=== PATIENT | male | born 1955 | race Caucasian/White ===

== ENCOUNTER 2024-11-24 08:02 | Outpatient (CLI) | payer OTHER ==
[~2024-11-24 08:02] MED LIST: ALEVE220 M1 PO; CEFADROXIL500 MG PO; PERCOCET 5/3251 TAB PO
== END 2024-11-24 08:14 | disposition home or self-care (01) ==
LOC: NUCLEAR 08:02
PROVIDERS: ATTEND Internal Medicine
DX: I10 Essential (primary) hypertension (principal)